=== PATIENT | female | born 1975 | race Caucasian/White ===

== ENCOUNTER 2021-02-14 17:39 | Emergency (ER) | payer OTHER, SELFPAY ==
--- NOTE | ~2021-02-14 | XR_ITS ---
XR ankle LT min 3V 02/14/2021 18:05 Indication: Left ankle pain after trauma Procedure: 4 views left ankle Comparison: 08/23/2010 Findings: Mild lateral soft tissue swelling. No fracture, subluxation or dislocation. There is a dege nerative calcaneal enthesophyte. Talar dome is normal. Impression: 1: No acute bone or joint abnormality. Reviewed, dictated and finalized at location A. Impression: 1: No acute bone or joint abnormality.
--- NOTE | ~2021-02-14 | XR_ITS ---
XR ankle RT min 3V 02/14/2021 18:04 Indication: Right ankle pain after trauma Procedure: 4 views right ankle Comparison: No prior studies for comparison. Findings: There is an oblique distal fibular metadiaphyseal fracture with approximately one cortical bone width dorsal displacement. No significant angulation. Ankle mortise intact. Talar dome is normal . Small degenerative calcaneal enthesophyte. Impression: 1: Oblique mildly displaced distal fibular metadiaphyseal fracture. Reviewed, dictated and finalized at location A. Impression: 1: Oblique mildly displaced distal fibular metadiaphyseal fracture.
[2021-02-14 17:55] VITALS: BP 104/69; PULSE 91; RESP 18; TEMP 36.9; O2SAT 100
--- NOTE | 2021-02-14 17:57 | ED.LOWEXIN ---
HPI - Extremity Injury (Lower) General Chief Complaint: Extremity Injury, Lower Stated Complaint: Pain Rt Ankle due to fall Time Seen by Provider: 02/14/21 17:55 Source: patient and RN notes reviewed History of Present Illness HPI Narrative: 45-year-old female presents to the [facility] with complaints of bilateral ankle pain, right worse than left after tripping and falling. Both are swollen. Trouble bearing weight on the right ankle. Has it wrapped. States it happened just prior to arrival. Patient has a history of falling off horses with a history of a brain bleed, skull fracture, pelvis fracture and lumbar fracture. Has a history of lupus and migraines Denies hitting head when she fell. Full range of motion of the bilateral knees and hips. Denies loss of consciousness. No headache, back pain or neck pain MD complaint: ankle injury (bilateral ) Related Data Home Medications Medication Instructions Recorded Confirmed hydroxychloroquine 200 mg PO BID 02/14/21 02/14/21 rizatriptan 10 mg PO .PRN PRN 02/14/21 02/14/21 Allergies Allergy/AdvReac Type Severity Reaction Status Date / Time topiramate Allergy Unknown Unknown Verified 02/14/21 18:19 Review of Systems Review of Systems: All systems reviewed & are unremarkable except as noted in HPI and below Constitutional: Constitutional: Reports no additional constitutional complaints, Denies chills and Denies fever(s) Eyes: Eyes: Reports no additional eye complaints ENT: Reports system reviewed and no additional complaints, except as documented Cardiovascular: Cardiovascular: Reports no additional cardiovascular complaints Respiratory: Respiratory: Reports no additional respiratory complaints Gastrointestinal: Gastrointestinal: Reports no additional gastrointestinal complaints Musculoskeletal: Musculoskeletal: Reports as per HPI, Reports arthralgias (Right and left ankle, right worse than left) and Reports joint swelling (Right and left ankle) Integumentary/Breasts: Skin/Breast: Reports system reviewed and no additional complaints, except as docu Neurologic: Reports system reviewed and no additional complaints, except as documented Psychiatric: Psychiatric: Reports no additional psychiatric complaints Allergic/Immunologic: Allergic/Immunologic: Reports no additional allergic/immunologic complaints [facility] Past Medical History Medical History (Updated 02/14/21 @ 20:01 by Sol Meade) Lumbar vertebral fracture Lupus Pelvis fracture Skull fracture Social History Social History (Updated 02/14/21 @ 20:02 by Sol A. Topper) Living arrangements: with family Gender identity (if verbalized by the patient): Female Sexual Orientation (if Verbalized by the Patient): Straight or Heterosexual Comments At the time of my signature, I reviewed and agree with the nursing past medical, surgical, social, and family history. There is no relevant family history pertinent to the patient complaint. Exam Const: General: healthy appearing, alert and ill appearing (Appears in pain) other Nutritional Appearance: well nourished Orientation/consciousness: patient oriented x3 Limitations: no limitations HENMT: Head: normal to inspection Eyes: Conjunctivae: conjunctivae normal Pupils: Equal, round and reactive pupils present Neck: Neck: normal visual inspection, no lymphadenopathy and no meningeal signs Chest: Chest palpation & inspection: normal inspection of the chest Resp: Effort & Inspection: normal respiratory effort and no use of accessory muscles Auscultation: clear to auscultation bilaterally Cardio: Rate: regular rate Rhythm: regular rhythm : General: Yes no CVA tenderness Back/Spine/Pelvis: Back: no CVA tenderness, No CVA tenderness, No erythema and No back tenderness Cervical Spine: normal cervical lordosis and cervical ROM normal Thoracic/Lumbar Spine: thoracic and lumbar spine normal to inspection Skin: General skin exam: normal color Rashes:
== END 2021-02-14 19:05 | disposition home or self-care (01) ==
PROVIDERS: Emergency Provider Nurse Practitioner; PCP Internal Medicine
DX: S82.831A Other fracture of upper and lower end of right fibula, initial encounter for closed fracture (principal); S93.402A Sprain of unspecified ligament of left ankle, initial encounter; W01.0XXA Fall on same level from slipping, tripping and stumbling without subsequent striking against object, initial encounter; M32.9 Systemic lupus erythematosus, unspecified
CPT/HCPCS: 29515; 73610; 99214; G0463